=== PATIENT | female | born 1940 | race Caucasian/White ===

== ENCOUNTER 2019-10-08 21:55 | Emergency (ER) | payer MEDICARE ==
[~2019-10-08] VITALS: Ht 162.6 cm; Wt 72.0 kg
[2019-10-08 21:59] VITALS: BP 158/82
[2019-10-08] MEDS ORDERED: PLEASE ENTER ALLERGIES MC SCH (22:30)
[2019-10-08] MEDS ORDERED: KETOROLAC 30 MG/1 ML IM ONE (22:30)
[2019-10-08] MEDS ORDERED: KETOROLAC 30 MG/1 ML ONE (22:34)
== END 2019-10-08 23:26 | disposition home or self-care (01) ==
LOC: ED 23:20
DX: S83.8X2A Sprain of other specified parts of left knee, initial encounter (principal); R07.89 Other chest pain; I10 Essential (primary) hypertension; E11.9 Type 2 diabetes mellitus without complications; W01.0XXA Fall on same level from slipping, tripping and stumbling without subsequent striking against object, initial encounter; Y93.89 Activity, other specified; Y92.098 Other place in other non-institutional residence as the place of occurrence of the external cause; Y99.8 Other external cause status
CPT/HCPCS: 71101; 73564; 96372; 99283; J1885

== ENCOUNTER 2020-04-19 18:06 | Outpatient (CLI) | payer MEDICARE | END 2020-04-19 23:59 | disposition home or self-care (01) | LOC: RAD 18:06 | PROVIDERS: ATTEND Radiology Diagnostic Radiology | DX: G31.89 Other specified degenerative diseases of nervous system (principal); R44.3 Hallucinations, unspecified | CPT/HCPCS: 70450 ==